=== PATIENT | female | born 1985 | race African-American/Black ===

== ENCOUNTER 2020-10-27 07:38 | Inpatient (IN) | payer OTHER ==
[2020-10-27] MEDS ORDERED: CITRIC ACID/SODIUM CITRATE 30 ML UNIT-DOSE CUP PO ONE (08:12)
[2020-10-27] MEDS ORDERED: PROMETHAZINE HCL 25 MG/1 ML VIAL IVPB ONE (08:12)
[2020-10-27] MEDS ORDERED: BENZOCAINE 28 GM HEMORRHOIDAL OINTMENT RC PRN (08:15)
[2020-10-27] MEDS ORDERED: METHYLERGONOVINE MALEATE 0.2 MG/1 ML AMP IM PRN (08:15)
[2020-10-27] MEDS ORDERED: WITCH HAZEL 50% (TUCKS) 40 PAD/JAR PAD TP PRN (08:15)
[2020-10-27] MEDS ORDERED: diphenhydrAMINE HCL 25 MG CAPSULE (FP) PO PRN (08:15)
[2020-10-27] MEDS ORDERED: BENZOCAINE 20% 57 GM BOTTLE TP PRN (08:15)
[2020-10-27] MEDS ORDERED: ACETAMINOPHEN 325 MG TABLET (FP) PO PRN (08:15)
[2020-10-27] MEDS: LACTATED RINGERS SOLUTION 1,000 ML IV SCH (08:40)
[2020-10-27] MEDS: ELECTROLYTE-148 SOLN 1,000 ML IV SCH (08:40)
[2020-10-27] MEDS ORDERED: OXYTOCIN 20 UNITS in 0.9% NS 20 UNIT/1,000 ML INFUS.BAG IV ONE (08:45)
[2020-10-27 08:56] VITALS: BMI 24.3
[2020-10-27 09:19] LABS: BASO % 0.3 % (0-2.0); EOS % 1.4 % (0-4.5); HEMATOCRIT 32.1 % (32.4-45.2); HEMOGLOBIN 11.2 GM/dL (10.7-15.3); LYMPH % 29.3 % (8-40); MCH 30.6 pg (25.7-33.7); MCHC 34.9 g/dl (32.0-36.0); MEAN CELL VOLUME 87.8 fl (80-96); MEAN PLT VOLUME 7.7 fl (7.5-11.1); MONO % 6.7 % (3.8-10.2); NEUT % 62.3 % (42.8-82.8); PLATELET COUNT 230 10^3/uL (134-434); RBC 3.66 M/mm3 (3.60-5.2); RDW 13.2 % (11.6-15.6); WHITE BLOOD COUNT 4.5 K/mm3 (4.0-10.0)
[2020-10-27 09:25] LABS: INR 0.92 (0.83-1.09); PROTHROMBIN TIME (PATIENT) 11.2 SEC (9.7-13.0)
[2020-10-27 09:28] LABS: ACTIVATED PTT 34.1 SECONDS (25.2-36.5)
[2020-10-27 09:46] LABS: CALCIUM 8.3 mg/dL (8.5-10.1)
[2020-10-27 09:47] LABS: BLOOD UREA NITROGEN 5.8 mg/dL (7-18)
[2020-10-27 09:50] LABS: CREATININE 0.4 mg/dL (0.55-1.3)
[2020-10-27 10:11] LABS: CORD BASE EXCESS -0.8 mmol/L (0-2); CORD HCO3 24.3 mmHg (20-29); CORD PCO2 41.6 mmHg (30-78); CORD pH 7.384 (7.14-7.44)
[2020-10-27 10:13] LABS: CORD HCO3 25.9 mmHg (20-29); CORD pH 7.192 (7.14-7.44)
[2020-10-27] MEDS ORDERED: ONDANSETRON 4 MG/2 ML VIAL IVPUSH PRN (10:16)
[2020-10-27] MEDS ORDERED: ACETAMINOPHEN 1000 MG/100 ML VIAL (NON FORMULARY) IVPB PRN (10:18)
[2020-10-27] MEDS ORDERED: ACETAMINOPHEN INJECTION 100 ML IVPB ONE (10:52)
[2020-10-27] MEDS: IBUPROFEN 800 MG/8 ML IJ IVPB PRN ×2 (14:32→20:12)
[2020-10-28] MEDS: SIMETHICONE 80 MG TAB.CHEW (FP) PO PRN ×4 (06:18→20:49)
[2020-10-28] MEDS: IBUPROFEN 600 MG TABLET (FP) PO PRN ×3 (06:18→20:49)
[2020-10-28] MEDS ORDERED: oxyCODONE HCL 5 MG TABLET PO PRN (08:15)
[2020-10-28] MEDS ORDERED: BISACODYL 10 MG SUPP.RECT PR PRN (08:16)
[2020-10-28] MEDS: ELECTROLYTE-148 SOLN 1,000 ML IV SCH (08:54)
[2020-10-28 08:56] LABS: HEMATOCRIT 23.6 % (32.4-45.2); HEMOGLOBIN 8.2 GM/dL (10.7-15.3); MCH 30.5 pg (25.7-33.7); MCHC 34.8 g/dl (32.0-36.0); MEAN CELL VOLUME 87.6 fl (80-96); MEAN PLT VOLUME 7.4 fl (7.5-11.1); PLATELET COUNT 188 10^3/uL (134-434); RDW 13.2 % (11.6-15.6); WHITE BLOOD COUNT 6.6 K/mm3 (4.0-10.0)
[2020-10-28] MEDS: LACTATED RINGERS SOLUTION 1,000 ML IV SCH (10:48)
[2020-10-28] MEDS: oxyCODONE HCL 5 MG TABLET PO PRN ×2 (15:55→20:49)
[2020-10-29] MEDS: IBUPROFEN 600 MG TABLET (FP) PO PRN (09:20)
[2020-10-29] MEDS: SIMETHICONE 80 MG TAB.CHEW (FP) PO PRN (09:21)
[2020-10-29 13:05] VITALS: BP 122/68; PULSE 60; TEMP 98.8
[2020-10-29] MEDS ORDERED: SENNOSIDES/DOCUSATE COMBO (SENNA PLUS) TABLET (UD) PO PRN (22:00)
== END 2020-10-29 13:55 | disposition home or self-care (01) | DRG 540 ==
LOC: JLDR 07:38 → J3W 11:45
PROVIDERS: ADMIT Obstetrics & Gynecology; ATTEND Obstetrics & Gynecology
PROC: 10D00Z1 Extraction of Products of Conception, Low, Open Approach (ICD-10-PCS; principal; 2020-10-27)
DX: O34.211 Maternal care for low transverse scar from previous cesarean delivery (principal); O98.52 Other viral diseases complicating childbirth; U07.1 COVID-19; O69.81X0 Labor and delivery complicated by cord around neck, without compression, not applicable or unspecified; Z3A.39 39 weeks gestation of pregnancy; Z37.0 Single live birth
CPT/HCPCS: 36415; 36600; 80048; 82803; 85025; 85027; 85610; 85730; 86780; 86850; 86900; 86901; 88307-TC; J0131